=== PATIENT | male | born 1985 | race Caucasian/White ===

== ENCOUNTER 2018-01-19 05:55 | Day surgery (SDC) | payer OTHER ==
[2018-01-09 15:07] VITALS: BMI 29.4
[2018-01-19] MEDS ORDERED: ONDANSETRON 4 MG/2 ML VIAL IVPUSH PRN (08:30)
[2018-01-19] MEDS ORDERED: LACTATED RINGERS SOLUTION 1,000 ML IV SCH (08:30)
[2018-01-19] MEDS ORDERED: oxyCODONE HCL 5 MG TABLET PO PRN ×2 (08:30)
--- NOTE | 2018-01-19 10:17 | DS ---
Physical Examination Vital Signs: Vital Signs Temperature 98.5 F 01/19/18 06:32 Pulse Rate 72 01/19/18 06:32 Respiratory Rate 18 01/19/18 06:32 Blood Pressure 126/91 01/19/18 06:32 O2 Sat by Pulse Oximetry (%) 96 01/19/18 06:32 Discharge Summary Reason For Visit: ACL TEAR, MEDIAL MENISC TEAR Condition: Good - Instructions Diet, Activity, Other Instructions: Post Operative Instructions: ACL Reconstruction Dr. Milo Mas 1. Pain following an ACL reconstruction is variable and can be significant. Some patients will have more pain than others. You have been provided with a prescription for medication that contains a narcotic. You are not allowed to drive while on this medication. You can take Tylenol (Acetaminophen) when taking the pain medication. Feel free to take medications such as Ibuprofen or Naprosyn in addition to the pain medicine if you do not have any problems with the NSAID class of medications. YOU MUST TAKE ASPIRIN 81 MG TWICE A DAY, STARTING TONIGHT FOR TWO WEEKS FOR BLOOD CLOT PREVENTION ! 2. You should not remove the bandage.. You may shower after 48 hours. You are not allowed to bathe or go swimming until the sutures are removed. Put band-aids on the sutures after your shower and do not put any creams or lotions over the incisions. 3. You are NOT allowed to put all your weight on the leg. 50% of your weight is ok. Do NOT bend the knee beyond 90 degrees for 2 weeks. Use the crutches at all times. 4. Getting the knee straight is your most important goal during the first 72 hours following an ACL reconstruction. Try not to lie down with a pillow under your knee. Instead the pillow should be under your ankle, thus allowing you to push your knee straight down into the bed. This is a very important milestone to achieve before your first post-surgery visit with me. 5. Swelling around the knee is normal following an ACL reconstruction. 6. The area around the knee and along the front of your ramos will also become swollen and black and blue. 7. Apply ice to the knee for 15 min every hour or so. You may continue this for as many days as you like. 8. Please call the office to schedule a visit to have your sutures removed. 9. If for any reason you believe you may have an infection or are concerned, please feel free to call me. I can be reached through our office number 24 hours a day. 10. Please call our office with any questions; we will review the surgical findings during your post operative visit. Disposition: HOME - Home Medications Comprehensive Discharge Medication List: Ambulatory Orders NK [No Known Home Medication] 01/09/18
--- NOTE | 2018-01-19 10:17 | OP ---
Operative Note - Note: Operative Date: 01/19/18 Pre-Operative Diagnosis: ACL tear, MMT Operation: LEft knee ACLR, and MMR Post-Operative Diagnosis: Same as Pre-op Surgeon: Milo Mas Anesthesiologist/[employer]ER: Александр De La Torre Anesthesia: General Operative Report Dictated: Yes
--- NOTE | 2018-01-19 10:26 | SURG ---
[facility] [employer] [facility] [employer]: Remberto Alvarado PA-C Date of Service: 01/19/18 Diagnosis: Left knee ACL tear, MMT Procedure: Left knee ACL reconstruction, and MMR I was present for the entirety of the operative procedure. For further detail, please refer to operative report. Visit type - Case Type Case Type: Scheduled - New patient This patient is new to me today: Yes Date on this admission: 01/19/18
[2018-01-19] MEDS ORDERED: oxyCODONE HCL 5 MG TABLET ONE (11:12)
[2018-01-19 11:39] VITALS: TEMP 97.8
[2018-01-19 13:01] VITALS: BP 149/79; PULSE 74
--- NOTE | 2018-01-23 17:04 | PATH ---
Surgical Pathology Report Patient Name: CARMELITA SARMIENTO Med. Rec. #: [id number] /Age/Gender: 1985 (Age: 32) / M Account: [id number] Location: [facility] Taken: 01/19/2018 Received: 01/19/2018 Reported: 01/23/2018 Physicians: Milo Mas M.D. Specimen(s) Received LEFT KNEE SHAVINGS Clinical History Left ACL tear Final Diagnosis KNEE SHAVINGS, LEFT, ACL REPAIR: FRAGMENTS OF CARTILAGE, DENSE FIBROCONNECTIVE TISSUE, ADIPOSE TISSUE, AND SYNOVIUM. Electronically Signed Tahira Dumont M.D. Gross Description Received in formalin, labeled "shavings left knee," is a 3.2 x 3.2 x 0.4 cm. aggregate of tyson-yellow soft tissue fragments. A site safety representative portion is submitted in one cassette. 01/22/201801/22/2018
== END 2018-01-19 13:01 | disposition home or self-care (01) ==
LOC: FASU 05:55
PROVIDERS: ATTEND Orthopaedic Surgery
PROC: 0LBR0ZZ Excision of Left Knee Tendon, Open Approach (ICD-10-PCS; 2018-01-19)
PROC: 0SBD4ZZ Excision of Left Knee Joint, Percutaneous Endoscopic Approach (ICD-10-PCS; 2018-01-19)
PROC: 0MRP47Z Replacement of Left Knee Bursa and Ligament with Autologous Tissue Substitute, Percutaneous Endoscopic Approach (ICD-10-PCS; principal; 2018-01-19 08:30)
DX: S83.512A Sprain of anterior cruciate ligament of left knee, initial encounter (principal); S83.212A Bucket-handle tear of medial meniscus, current injury, left knee, initial encounter; X58.XXXA Exposure to other specified factors, initial encounter; Y93.9 Activity, unspecified; Y92.9 Unspecified place or not applicable
CPT/HCPCS: 88304-TC; 94760; 97116-GP